=== PATIENT | female | born 1965 | race Caucasian/White ===

== ENCOUNTER → 2018-03-09 | Outpatient (CLI) | payer OTHER ==
[2015-08-28 11:15] VITALS: BMI 40.4
[~2018-03-09] MED LIST: ACE325 PO; CETI10CA8 PO; DAPA5TAB; EXEN2VIA SQ; FLUTR; IBUP800T37 PO; LOR10 PO; OXYC-373 PO; SERT25TA87 PO; SIMV-49 PO; VITAMINS
--- NOTE | 2018-03-10 08:46 | RADIOLOGY IMAGING REPORT ---
FACILITY: [facility] [place] PATIENT NAME: ADRIANO GARIBAY : [id number] MR: [id number] V: [id number] EXAM DATE: ORDERING PHYSICIAN: JAYRO SU TECHNOLOGIST: Esther Yeboah PROCEDURE:BILATERAL DIGITAL SCREENING MAMMOGRAM WITH CAD ASSISTED INTERPRETATION & 3D TOMOSYNTHESIS COMPARISON:Prior mammograms 12/08/15, 03/04/14, 03/25/11. INDICATIONS:SCREENING FINDINGS: There is predominant fatty replacement throughout the breasts. Most of the parenchymal pattern has remained stable allowing for difference in mammographic technique & patient positioning. There is a small nodular area in the approximate 12 o'clock position of the Right breast for which Right breast Ultrasound is recommended. DIAGNOSTIC CATEGORY 0--INCOMPLETE: NEED ADDITIONAL IMAGING EVALUATION. RECOMMENDATIONS: ULTRASOUND: RIGHT BREAST. IMPRESSION: BIRADS 0: Incomplete. Right breast Ultrasound recommended as described. Dictated by: Ricarda Laguna M.D. on 03/09/2018 at 14:49 Transcribed by: GILDA on 03/09/2018 at 15:01 Approved by: Ricarda Laguna M.D. on 03/10/2018 at 8:45 [facility]
== END ==
LOC: MAMO 00:36
PROVIDERS: ATTEND Physician Assistant
DX: Z12.31 Encounter for screening mammogram for malignant neoplasm of breast (principal); R92.8 Other abnormal and inconclusive findings on diagnostic imaging of breast
CPT/HCPCS: 77063; 77067

== ENCOUNTER → 2018-03-23 | Outpatient (CLI) | payer OTHER ==
[2015-08-28 11:15] VITALS: BMI 40.4
--- NOTE | 2018-03-24 09:52 | RADIOLOGY IMAGING REPORT ---
FACILITY: [facility] [place] PATIENT NAME: ADRIANO GARIBAY : [id number] MR: [id number] V: [id number] EXAM DATE: ORDERING PHYSICIAN: JAYRO SU TECHNOLOGIST: Mariana Bailey RT(R)(CT) PROCEDURE:US RIGHT BREAST COMPARISON:Prior mammogram 03/09/18. INDICATIONS:FURTHER EVAL FINDINGS: In the 12 o'clock position of the Right breast 9cm from the nipple there is a 3.4 x 4 x 5.2mm cystic area. In the 12 o'clock position of the Right breast 3cm from the nipple there is a mildly dilated duct measuring approximately 2.3mm in diameter. These findings likely account for the recent mammographic findings. DIAGNOSTIC CATEGORY 2--BENIGN FINDING. RECOMMENDATIONS: ROUTINE MAMMOGRAM AND CLINICAL EVALUATION. IMPRESSION: BIRADS 2: Benign finding. There is a small cystic area in the 12 o'clock position of the Right breast and a mildly dilated duct likely accounting for the recent mammographic findings. Dictated by: Ricarda Laguna M.D. on 03/23/2018 at 16:42 Transcribed by: GILDA on 03/24/2018 at 8:54 Approved by: Ricarda Laguna M.D. on 03/24/2018 at 9:51 [facility]
== END ==
LOC: MAMO 01:17
PROVIDERS: ATTEND Physician Assistant
DX: N60.01 Solitary cyst of right breast (principal); N60.41 Mammary duct ectasia of right breast